=== PATIENT | male | born 1975 | race African-American/Black ===

== ENCOUNTER 2021-03-05 22:24 | Emergency (ER) | payer BC ==
[~2021-03-05] VITALS: Ht 180.3 cm; Wt 93.0 kg
[2021-03-05 22:51] LABS: ABSOLUTE NEUTROPHILS 10.2 thou/uL (1.4-8.2); BASOPHILS 0.4 % (0.0-2.0); EOSINOPHILS 0.6 % (0.0-3.0); HEMATOCRIT 42.2 % (42.0-52.0); HEMOGLOBIN 14.3 gm/dL (14.0-18.0); LYMPHOCYTES 14.4 % (24.0-44.0); MCH 30.9 pg (26.0-34.0); MCHC 33.8 g/dL (28.0-37.0); MCV 91.2 fL (80.0-100.0); MONOCYTES 6.6 % (1.0-8.0); PLATELET COUNT 282 thou/uL (150-400); RBC 4.63 mil/uL (4.50-6.00); RDW 13.5 % (10.5-14.5); WBC 13.1 thou/uL (4.0-11.0)
[2021-03-05 23:01] LABS: CALCIUM 9.2 mg/dL (8.5-10.1); CREATININE 1.7 mg/dL (0.7-1.3); POTASSIUM 3.6 mmol/L (3.5-5.1)
[2021-03-05 23:08] LABS: ALBUMIN 3.9 g/dL (3.4-5.0); TOTAL BILIRUBIN 0.4 mg/dL (0.2-1.0); TOTAL PROTEIN 7.4 g/dL (6.4-8.2)
[2021-03-06] MEDS ORDERED: NORCO5 PO (00:04)
[2021-03-06] MEDS ORDERED: IBUPROFEN 600600 M1 PO (00:04)
[2021-03-06 01:10] VITALS: BP 99/38
== END 2021-03-06 01:10 | disposition home or self-care (01) ==
LOC: ER 22:24
PROVIDERS: Emergency Medicine
DX: N20.0 Calculus of kidney (principal)